=== PATIENT | male | born 1975 | race Caucasian/White ===

== ENCOUNTER → 2024-05-13 09:24 | Outpatient (REF) | payer OTHER, SELFPAY ==
[2024-05-13 11:17] LABS: Erythrocyte Sed Rate 39 mm/hour (0-20)
== END ==
LOC: REG 09:24
PROVIDERS: ATTENDING PHYSICIAN Nurse Practitioner Acute Care; FAMILY PHYSICIAN Family Medicine
DX: D72.829 Elevated white blood cell count, unspecified (principal)
CPT/HCPCS: 36415; 85652

== ENCOUNTER 2024-05-20 07:58 | Emergency (ER) | payer OTHER, SELFPAY ==
[2024-05-20 08:06] VITALS: BP 123/81
[2024-05-20 09:10] VITALS: BMI 32.1
--- NOTE | 2024-05-20 09:25 | ED.GENMED ---
History of Present Illness
General
Chief Complaint: Musculo-Skeletal Complaint
Source: patient
Time Seen by Provider: 05/20/24 09:04
History of Present Illness
History of Present Illness:
48yoM with no known medical history presenting with his for evaluation of joint pains. He has been having intermittent symptoms since 2020. He reports pain in various joints which seem to be worse on the right side of his body. The pains are
present in the elbow, wrists, and hips intermittently. The pain typically resolves spontaneously after a day or two. His symptoms have become more frequent over the past 6 months and are now affecting his mobility. His current symptoms are present
in the R hip and started 3 days ago. It took him 2 hours to get out of bed this morning. He is taking ibuprofen with some relief. He is also having intermittent night sweats. He was seen by his PCP several months ago for these symptoms. He was found
to have a leukocytosis and referred to hematology. He was seen by hematology last week and patient states they were not concerned for leukemia/malignancy. He had labs in November including MAGGIE, rheumatoid factor, and Lyme testing which were negative.
No fevers or tick/insect bites.
Phy Exam
General Physical Exam
General Presentation: well appearing and no apparent distress
General age: appears stated age
General Skin: warm and dry
General Habitus: normal
General Mental: alert
ENT Exam
ENT Exam: normocephalic
Pulmonary Exam
Pulmonary Exam: no respiratory distress
Nilam Coma Scale
Eye Opening: Spontaneous
Verbal Response: Oriented
Motor Response: Obeys Commands
GCS Total Score: 15
Musculoskeletal Exam
Musculoskeletal Exam: other (No joint swelling/erythema noted)
Skin Exam
Skin Exam: normal color and warm/dry
Psychiatric Exam
Psychiatric Exam: normal mood/affect
Course
Orders/Labs/Results
Orders:
Orders
05/20/24 09:25
Hip, Right 2-3 Views [CR Hip - RT w/wo Pel 2-3 Vw*] Urgent
Comment:
Reason For Exam: atraumatic pain
Include a pelvis x-ray?: Yes
05/20/24 09:39
CRP [C-Reactive Protein] Urgent
Complete Blood Count/With Diff Urgent
Comprehensive Metabolic Panel Urgent
ESR [Erythrocyte Sed Rate] Urgent
Lyme Progressive Urgent
Abnormal Lab Results
05/20/24
09:39
WBC 11.6 H 10^3/uL
(4.8-10.8)
MCV 79.7 L fL
(80.0-94.0)
MCH 26.8 L pg
(27.0-31.0)
RDW 15.0 H %
(11.5-14.5)
Abs Immat Gran (auto) 0.1 H 10^3/uL
(0-0.05)
Absolute Neuts (auto) 8.7 H 10^3/uL
(1.4-6.5)
Absolute Monos (auto) 1.0 H 10^3/uL
(0.1-0.6)
Immature Gran % 0.7 H %
(0-0.5)
Lymphocytes % 15.4 L %
(20.5-51.1)
ESR 40 H mm/hour
(0-20)
Glucose 108 H mg/dl
(70-99)
C-Reactive Protein 64.20 H mg/L
(0.0-10.00)
05/20/24 09:39
05/20/24 09:39
Vital Signs
Initial and Last Documented VS:
Initial Vital Signs
Temp Pulse Resp BP Pulse Ox
99.2 F 88 16 123/81 98
05/20/24 08:06 05/20/24 08:06 05/20/24 08:06 05/20/24 08:06 05/20/24 08:06
Last Documented Vital Signs
Temp Pulse Resp BP Pulse Ox
99.2 F 78 16 118/76 99
05/20/24 08:06 05/20/24 10:34 05/20/24 10:34 05/20/24 10:34 05/20/24 10:34
MDM/Problems Addressed
Differential Diagnosis Includes:
48yoM here with intermittent joint pains x several years that have progressed over the past 6 years. Associated with night sweats. Has been seen by his PCP and hematology for the same. VSS. He is well appearing in no distress. No joint swelling or
erythema on exam. Differential diagnosis includes but is not limited to: Lyme disease, osteoarthritis, RA, SLE, no signs of infection clinically
Initial ED plan: Check CBC, CMP, ESR/CRP, Lyme testing, and R hip x-rays.
*Critical Care Note
Total Time (30-74mins, 75-104mins- exclusive of procedures): Not Applicable
Update Note
Update Note:
Leukocytosis noted with a 11.6 which is consistent with prior labs. Both ESR/CRP are elevated. CMP unremarkable. Minimal degenerative changes on hip x-ray. Concern for possible underlying rheumatologic disease. Will trial course of prednisone. He
was advised to f/u with his PCP and rheumatology. He was discharged in stable condition.
ED Attending Note
-
Portions of this chart may have been created with voice recognition software.� Occasional wrong word or��sound alike� substitutions may have occurred due to the inherent limitations of voice recognition software.
Discharge Plan
Departure
Patient Disposition: Home (Routine Discharge)
Date of Disposition: 05/20/24
Time of Disposition: 10:45
Patient with high blood pressure during this ER visit?: No
Discharge Problem:
Polyarthralgia
Instructions: Muscle and Bone Pain (DC)
Prescriptions:
New
prednisone 50 mg tablet
50 mg PO DAILY Qty: 5 0RF
Referrals:
Jj Jasso, [Family Provider] -
Nicolasa Hines MD [Active] -
Activity Restrictions/Additional Instructions:
Take prednisone as prescribed.
Please follow-up with your family doctor and rheumatology. Return to the ER with any worsening symptoms.
Interventions
Interventions:
*Risk Screen - Suicide Last Done: 05/20/24 08:06
*Neglect/Abuse Screening Last Done: 05/20/24 08:06
ED- Fall Risk Assessment Last Done: 05/20/24 09:12
*ED COVID-19 Vaccine History Last Done: 05/20/24 09:10
*Nursing Disposition Last Done: 05/20/24 11:05
ED-Musculoskeletal Assessment Last Done: 05/20/24 09:54
Discharge Date and Time
Discharge Date/Time: 05/20/24 11:06
Print Language: CROATIAN
[2024-05-20 09:47] LABS: % Basophils 0.3 % (0-2); % Eosinophils 0.5 % (0-6); % Immature Granulocytes 0.7 % (0-0.5); % Lymphocytes 15.4 % (20.5-51.1); % Monocytes 8.4 % (1.7-9.3); % Neutrophils 74.7 % (42.2-75.2); Absolute Eosinophils 0.1 10^3/uL (0-0.7); Absolute Immature Granulocytes 0.1 10^3/uL (0-0.05); Absolute Lymphocytes 1.8 10^3/uL (1.2-3.4); Absolute Neutrophils 8.7 10^3/uL (1.4-6.5); Hematocrit 39.2 % (39.0-52.0); Hemoglobin 13.2 g/dL (13.0-18.0); Mean Corp Hgb Conc. 33.7 g/dL (33.0-37.0); Mean Corpuscular Hgb 26.8 pg (27.0-31.0); Mean Corpuscular Volume 79.7 fL (80.0-94.0); Mean Platelet Volume 8.4 fL (7.4-10.4); Nucleated Red Blood Cells % 0 % (-); Platelet Count 308 10^3/uL (130-400); Red Blood Cell Count 4.92 10^6/uL (4.70-6.10); White Blood Cell Count 11.6 10^3/uL (4.8-10.8)
[2024-05-20 09:53] LABS: Erythrocyte Sed Rate 40 mm/hour (0-20)
[2024-05-20 10:06] LABS: ALT (SGPT) 17 U/L (0-50); AST (SGOT) 20 U/L (17-59); Alkaline Phosphatase 85 U/L (38-126); Blood Urea Nitrogen 13 mg/dl (9-20); Calcium 9.3 mg/dl (8.4-10.2); Carbon Dioxide 22 mmol/L (22-30); Chloride 105 mmol/L (98-107); Estimated Creatinine Clearance > 125 ml/min; Glucose 108 mg/dl (70-99); Potassium 4.3 mmol/L (3.5-5.1); Sodium 142 mmol/L (135-145); Total Bilirubin 0.5 mg/dl (0.2-1.3); Total Protein 7.3 g/dl (6.3-8.2); eGFR > 60.00
[2024-05-20 10:34] VITALS: BP 118/76
[2024-05-22 14:22] LABS: Lyme Antibody Screen, EIA Negative (Negative)
== END 2024-05-20 11:06 | disposition home or self-care (01) ==
LOC: EMR 07:58
PROVIDERS: Physician Assistant; EMERGENCY PHYSICIAN Emergency Medicine; FAMILY PHYSICIAN Family Medicine
DX: M25.521 Pain in right elbow (principal); M25.531 Pain in right wrist; M25.551 Pain in right hip
CPT/HCPCS: 99284; 73502; 80053; 85025; 85652; 86140; 86618

== ENCOUNTER 2024-08-13 06:27 | Day surgery (SDC) | payer OTHER, SELFPAY | END 2024-08-13 09:04 | disposition home or self-care (01) | LOC: GI 06:27 | PROVIDERS: ATTENDING PHYSICIAN Internal Medicine Gastroenterology | DX: Z12.11 Encounter for screening for malignant neoplasm of colon (principal); K64.8 Other hemorrhoids | CPT/HCPCS: G0121 ==

== ENCOUNTER → 2024-08-14 10:36 | Outpatient (REF) | payer OTHER, SELFPAY | LOC: RAD 10:36 | PROVIDERS: ATTENDING PHYSICIAN Internal Medicine Rheumatology; FAMILY PHYSICIAN Family Medicine | DX: M06.4 Inflammatory polyarthropathy (principal); M12.30 Palindromic rheumatism, unspecified site | CPT/HCPCS: 73080; 73130 ==

== ENCOUNTER → 2024-10-22 10:26 | Outpatient (REF) | payer OTHER, SELFPAY | LOC: RAD 10:26 | PROVIDERS: ATTENDING PHYSICIAN Physician Assistant; FAMILY PHYSICIAN Family Medicine; OTHER PHYSICIAN Internal Medicine Rheumatology | DX: R07.9 Chest pain, unspecified (principal) | CPT/HCPCS: 71046 ==

== ENCOUNTER → 2024-11-16 13:32 | Outpatient (REF) | payer OTHER, SELFPAY | LOC: RCS 13:32 | PROVIDERS: ATTENDING PHYSICIAN Student in an Organized Health Care Education/Training Program; FAMILY PHYSICIAN Student in an Organized Health Care Education/Training Program | DX: I30.9 Acute pericarditis, unspecified (principal) | CPT/HCPCS: 93306 ==

== ENCOUNTER → 2025-03-10 06:48 | Outpatient (REF) | payer OTHER, SELFPAY | LOC: RAD 06:48 | PROVIDERS: ATTENDING PHYSICIAN Internal Medicine Rheumatology; FAMILY PHYSICIAN Family Medicine | DX: R16.1 Splenomegaly, not elsewhere classified (principal) | CPT/HCPCS: 76705 ==